=== PATIENT | male | born 1985 | race Two or more races ===

== ENCOUNTER 2024-06-30 10:45 | Emergency (ER) | payer MEDICAID, SELFPAY ==
--- NOTE | 2024-06-30 11:34 | XR_ITS ---
Exam: Chest PA, lateral 2 views Technique: Chest upright PA lateral 2 views Date and time of exam: 06/30/2024, 12:01 PM INDICATION: Chest pain comparison:: 05/01/2017 Findings: Normal heart size. No mediastinal adenopathy. No acute fracture No pulmonary edema or pneumonia. Impression: No active disease.
[2024-06-30 11:35] VITALS: BP 113/79; PULSE 64; RESP 16; TEMP 36.6; O2SAT 97; BMI 23.0
--- NOTE | 2024-06-30 11:35 | PD.EDBACK ---
ED Back Injury Pain RME/HPI General Chief Complaint: Back Pain/Injury Stated Complaint: BACK PAIN Time Seen by Provider: 06/30/24 11:33 Arrival date/time: 06/30/24 10:45 RME / HPI RME / HPI Narrative: 39-year-old male patient came in for evaluation regarding left scapular pain. This been ongoing for the last 2 weeks, getting worse for the last 3 days as pain to the scapular area, worse with depressing and coughing. Pain is described as dull ache, severity 10 out of 10. Denies any trauma. Denies any fever. Denies any other complaints no medication was taken prior to arrival. Related Data Home Medications ?Medication ?Instructions ?Recorded ?Confirmed gabapentin 300 mg capsule 300 mg PO TID 05/25/17 05/25/17 ibuprofen 600 mg tablet 600 mg PO QID 05/25/17 05/25/17 levetiracetam 1,000 mg tablet 1,000 mg PO Q12H 05/25/17 05/25/17 (Keppra) Previous Rx's ?Medication ?Instructions ?Recorded hydrocodone 10 mg-acetaminophen 1 tab PO Q6H #14 tabs 05/25/17 325 mg tablet (Point Comfort) Allergies Allergy/AdvReac Type Severity Reaction Status Date / Time tramadol AdvReac Intermediate ITCHY ALL Verified 06/30/24 10:47 OVER , CAN CAUSE SEIZURES PER PT Review of Systems Review of Systems Narrative Review of Systems: Review of system reviewed and within normal limits except mentioned in HPI ED Exam Narrative Physical exam: VITAL SIGNS: Reviewed. GENERAL APPEARANCE: Alert and interactive, follows commands, no acute distress, HEAD AND FACE: Non-traumatic. ENT: PERRL, pink conjunctivitis, eyelid no trauma, Mucous membrane moist. NECK: Supple, nontender, no nuchal rigidity. CHEST: No tenderness, no crepitus, no paradoxical movement, no retractions. LUNGS: Clear, well ventilated, symmetric, no rales, no wheezing, no ronchi, no stridor, good breath sounds bilaterally. HEART: Regular rate, regular rhythm, no murmur, no gallops. ABDOMEN: Soft, positive bowel sounds, nondistended, no guarding, nontender, no rebound, no masses, RECTAL: Deferred. GENITAL: Deferred. NEUROLOGICAL: Gross motor function intact sensory function intact, Appropriate for age. MUSCULOSKELETAL: Tenderness to the left scapular area on palpation, full range of motion. EXTREMITIES: Nontender, full range of motion. SKIN: Color pink, dry, no rash, no lacerations, no abrasions, no contusions. LYMPHATICS: Deferred. Course Quality Measures none Orders Category Date Time Status XR chest 2V Stat Exams 06/30/24 11:34 Completed CYCLObenzaPRINE [Flexeril] Med 06/30/24 11:35 Discontinued 10 mg PO X1 ONE Dexamethasone Inj [Decadron Inj] Med 06/30/24 11:34 Discontinued 10 mg IM X1 ONE Ketorolac Inj [Toradol Inj] Med 06/30/24 11:34 Discontinued 30 mg IM X1 ONE Vital Signs Vital signs: Vital Signs Temperature 97.9 F 06/30/24 11:35 Pulse Rate 64 06/30/24 11:35 Respiratory Rate 16 06/30/24 11:35 Blood Pressure 113/79 06/30/24 11:35 Pulse Oximetry (%) 97 06/30/24 11:35 Oxygen Delivery Method Room Air 06/30/24 11:35 Back Pain / Injury [facility] Narrative [facility] Narrative:: 39-year-old male patient came in for evaluation regarding left scapular pain. This been ongoing for the last 2 weeks, getting worse for the last 3 days as pain to the scapular area, worse with depressing and coughing. Pain is described as dull ache, severity 10 out of 10. Denies any trauma. Denies any fever. Denies any other complaints no medication was taken prior to arrival. Chest x-ray came back unremarkable. Patient received Toradol, Decadron, and x-ray with significant improvement of symptoms Patient eloped from the emergency room Patient data External records reviewed:: None Clinical information provided by:: patient Social determinants that could affect healthcare access:: none Patient has the following chronic illnesses:: None How is presenting disease/condition affected by chronic disease/condition?: no chronic disease Evaluation data The following diagnostics were reviewed and interpreted by me:: radiology exam(s) Lab and/or radiology exams considered but not ordered:: None Interpretation Summary: See results in MDM Medications / Prescriptions Medications or Prescriptions considered but not ordered:: None Medication administrations:: Medication Administration History Discontinued Medications Cyclobenzaprine HCl (Cyclobenzaprine 5 Mg Tablet) 10 mg PO X1 ONE Stop: 06/30/24 11:36 Last Admin: 06/30/24 11:42 Dose: 10 mg Documented By: NEGIN Dexamethasone Sodium Phosphate (Dexamethasone Sod Phos Inj 10 Mg/Ml Vial) 10 mg IM X1 ONE Stop: 06/30/24 11:35 Last Admin: 06/30/24 11:44 Dose: 10 mg Documented By: NEGIN Ketorolac Tromethamine (Ketorolac Inj 60 Mg/2 Ml Vial) 30 mg IM X1 ONE Stop: 06/30/24 11:35 Last Admin: 06/30/24 11:43 Dose: 30 mg Documented By: NEGIN Toradol, Flexeril, and Decadron Consultations Consultation(s) initiated? (list below): No Diagnosis Differential diagnosis back pain/injury: other (Scapulalgia, pneumonia, pneumothorax) Most likely diagnosis given after review of the tests above:: Scapulalgia Admission Indicated Admission indicated?: not indicated Admission Request Was there a request for admission?: No Disposition Plan Disposition Plan: other (specify) (Elopement) Discharge Plan Plan Patient Disposition: Elopement Prescriptions/Referrals Prescriptions/Med Rec: No Action ibuprofen 600 mg Tablet 600 mg PO QID gabapentin 300 mg Capsule 300 mg PO TID levetiracetam [Keppra] 1,000 mg Tablet 1,000 mg PO Q12H hydrocodone-acetaminophen [[place]] 10-325 mg tablet 1 tab PO Q6H MDD 4 tabs Qty: 14 0RF Referrals: No Primary/Family,Physician [Primary Care Provider] - In 1 week Problem List Clinical Impression: Scapulalgia Patient/Caregiver Discharge Instructions Print Language: Lithuanian
[2024-06-30] MEDS: CYCLObenzaPRINE 5 MG TABLET 10 MG PO (11:42)
[2024-06-30] MEDS: KETOROLAC INJ 60 MG/2 ML VIAL 30 MG IM (11:43)
[2024-06-30] MEDS: DEXAMETHASONE SOD PHOS INJ 10 MG/ML VIAL IM (11:44)
--- NOTE | 2024-06-30 15:04 | PC.NURSE ---
PT CAME UP TO THIS RN WHEN TRIAGING ANOTHER PT AND STATED HE IS LEAVING BECAUSE HE IS TIRED OF WAITING.
== END 2024-06-30 15:05 | disposition left against medical advice (07) ==
LOC: SERX 11:55
PROVIDERS: Emergency Provider Family Medicine
DX: M89.8X1 Other specified disorders of bone, shoulder (principal)
CPT/HCPCS: 71046; 96372; 99283; J1100; J1885; A9270